=== PATIENT | female | born 1955 | race Caucasian/White ===

== ENCOUNTER 2017-06-18 08:11 | Outpatient (CLI) | payer BC ==
[2017-06-18 08:35] LABS: BASOPHILS % (AUTO) 0.4 % (0-1); EOSINOPHILS # (AUTO) 0.2 X10'3 (0-0.9); EOSINOPHILS % (AUTO) 4.1 % (0-6); HEMATOCRIT 43.6 % (35.0-45.0); LYMPHOCYTES # (AUTO) 1.1 X10'3 (1.1-4.8); LYMPHOCYTES % (AUTO) 22.7 % (21-51); MEAN CORPUSCULAR HEMOGLOBIN 29.6 PG (27.0-31.0); MEAN CORPUSCULAR HGB CONC 34.5 % (33.0-36.5); MEAN CORPUSCULAR VOLUME 85.9 FL (78-98); MEAN PLATELET VOLUME 7.4 FL (7.4-10.4); MONOCYTES # (AUTO) 0.4 X10'3 (0-0.9); MONOCYTES % (AUTO) 7.6 % (2-12); NEUTROPHILS # (AUTO) 3.1 X10'3 (1.8-7.7); NEUTROPHILS % (AUTO) 65.2 % (42-75); PLATELET COUNT 279 X10'3 (140-440); RED BLOOD COUNT 5.07 X10'6 (4.20-5.60); RED CELL DISTRIBUTION WIDTH 13.1 % (11.5-14.5); WHITE BLOOD COUNT 4.8 X10'3 (4.5-11.0)
[2017-06-18 08:46] LABS: PARTIAL THROMBOPLASTIN TIME 27 SECONDS (22-32); PROTHROMBIN TIME 9.9 SECONDS (9.0-12.0)
[2017-06-18 08:47] LABS: ALBUMIN 4.3 G/DL (3.4-5.0); ANION GAP 9 (8-16); BLOOD UREA NITROGEN 16 MG/DL (7-18); BUN/CREATININE RATIO 18.2 (6.6-38.0); CALCIUM 9.7 MG/DL (8.5-10.1); CHLORIDE 104 MMOL/L (99-107); CREATININE 0.88 MG/DL (0.40-0.90); GLUCOSE 91 MG/DL (70-104); POTASSIUM 3.8 MMOL/L (3.5-5.1); SODIUM 141 MMOL/L (135-145); TOTAL CARBON DIOXIDE 27.9 MMOL/L (24-32); eGFR 66 ML/MIN
== END 2017-06-18 23:59 | disposition home or self-care (01) ==
LOC: LAB 08:11
PROVIDERS: ATTEND Internal Medicine Interventional Cardiology
DX: I25.10 Atherosclerotic heart disease of native coronary artery without angina pectoris (principal); E78.4 Other hyperlipidemia; I34.1 Nonrheumatic mitral (valve) prolapse; J45.909 Unspecified asthma, uncomplicated; R07.2 Precordial pain; R06.02 Shortness of breath
CPT/HCPCS: 36415; 80048; 85025; 85610; 85730

== ENCOUNTER 2017-07-13 13:37 | Inpatient (IN) | payer BC ==
[2017-07-09 11:07] LABS: BASOPHILS % (AUTO) 0.6 % (0-1); EOSINOPHILS # (AUTO) 0.2 X10'3 (0-0.9); EOSINOPHILS % (AUTO) 2.9 % (0-6); HEMATOCRIT 44.7 % (35.0-45.0); HEMOGLOBIN 15.2 g/dl (12.0-16.0); MEAN CORPUSCULAR HEMOGLOBIN 29.6 PG (27.0-31.0); MEAN CORPUSCULAR HGB CONC 34.1 % (33.0-36.5); MEAN CORPUSCULAR VOLUME 86.9 FL (78-98); MEAN PLATELET VOLUME 7.6 FL (7.4-10.4); MONOCYTES # (AUTO) 0.4 X10'3 (0-0.9); MONOCYTES % (AUTO) 6.1 % (2-12); NEUTROPHILS # (AUTO) 5.3 X10'3 (1.8-7.7); NEUTROPHILS % (AUTO) 76.4 % (42-75); PLATELET COUNT 274 X10'3 (140-440); RED BLOOD COUNT 5.14 X10'6 (4.20-5.60); RED CELL DISTRIBUTION WIDTH 13.1 % (11.5-14.5); WHITE BLOOD COUNT 6.9 X10'3 (4.5-11.0)
[2017-07-09 11:16] LABS: ALBUMIN 4.4 G/DL (3.4-5.0); ANION GAP 10 (8-16); BLOOD UREA NITROGEN 18 MG/DL (7-18); BUN/CREATININE RATIO 19.6 (6.6-38.0); CALCIUM 9.8 MG/DL (8.5-10.1); CHLORIDE 103 MMOL/L (99-107); CREATININE 0.92 MG/DL (0.40-0.90); GLUCOSE 99 MG/DL (70-104); POTASSIUM 4.4 MMOL/L (3.5-5.1); SODIUM 142 MMOL/L (135-145); TOTAL CARBON DIOXIDE 28.7 MMOL/L (24-32); eGFR 62 ML/MIN
[2017-07-09 11:17] LABS: INR 0.9 INR; PARTIAL THROMBOPLASTIN TIME 26 SECONDS (22-32); PROTHROMBIN TIME 9.8 SECONDS (9.0-12.0)
[~2017-07-13] VITALS: Ht 154.9 cm; Wt 63.0 kg
[2017-07-13 14:04] VITALS: BP 141/88
[2017-07-13] MEDS ORDERED: diphenhydrAMINE 25mg capsule PO ONE (14:05)
[2017-07-13] MEDS ORDERED: normal saline 1000ml 1,000 ML IV SCH ×2 (14:05→21:05)
[2017-07-13] MEDS ORDERED: LORazepam 0.5 MG tablet PO ONE (14:05)
[2017-07-13] MEDS ORDERED: ROSU20TA PO (16:09)
[2017-07-13] MEDS ORDERED: NITR0.4T48 SL (16:09)
[2017-07-13] MEDS ORDERED: LIDOcaine 1%/PF (10mg/ml) 5ml vial ONE (18:59)
[2017-07-13] MEDS ORDERED: iohexol 350MG/ML 100ml bottle IV ONE ×2 (18:59→19:39)
[2017-07-13] MEDS ORDERED: LIDOcaine 1% 30ml preserv. free vial ONE (19:01)
[2017-07-13] MEDS ORDERED: midazolam 2 mg/2 ml injection ONE (19:11)
[2017-07-13] MEDS ORDERED: fentaNYL/PF 50MCG/1 ML 2ML syringe ONE ×2 (19:24→20:09)
[2017-07-13] MEDS ORDERED: heparin 1,000unit/ml 10ml vial 10 ML ONE (19:36)
[2017-07-13 20:40] VITALS: BP 127/82
[2017-07-13 21:00] VITALS: BP 134/79
[2017-07-13] MEDS ORDERED: proCHLORperazine 10 MG/2 ml inj IV PRN (21:05)
[2017-07-13] MEDS ORDERED: ondansetron/PF 4mg/2ml inj IV PRN (21:05)
[2017-07-13] MEDS ORDERED: HYDROcodone/acetaminophen 5mg/325mg tablet PO PRN (21:05)
[2017-07-13] MEDS ORDERED: nitroGLYCERIN 0.4mg SUBLingual tab SL PRN (21:05)
[2017-07-13] MEDS ORDERED: OXAZEpam 15mg capsule PO PRN (21:05)
[2017-07-13] MEDS ORDERED: HYDROmorphone inj. 0.5 MG/0.5 ML DISP.SYRIN IV PRN (21:10)
[2017-07-13 21:15] VITALS: BP 130/68
[2017-07-13 21:30] VITALS: BP 124/72
[2017-07-13] MEDS: HYDROcodone/acetaminophen 10/325mg tab PO PRN (21:47)
[2017-07-13 22:00] VITALS: BP 118/69
[2017-07-14 02:00] VITALS: BP 103/66
[2017-07-14] MEDS: HYDROcodone/acetaminophen 10/325mg tab PO PRN ×2 (02:15→06:04)
[2017-07-14 06:23] LABS: CHOL/HDL RATIO 1.9 (0.00-4.99); CHOLESTEROL 157 MG/DL (0-200); CREATININE 0.88 MG/DL (0.40-0.90); HDL CHOLESTEROL 83 MG/DL (35-60); LDL CHOLESTEROL 51 MG/DL (50-100); TRIGLYCERIDES 68 MG/DL (20-135); eGFR 66 ML/MIN
[2017-07-14 06:30] VITALS: BP 116/59
[2017-07-14] MEDS ORDERED: ASPI-1071 PO (07:04)
[2017-07-14] MEDS ORDERED: METO25TA6 PO (07:04)
[2017-07-14] MEDS ORDERED: metoprolol tartrate 25mg tablet PO SCH (08:00)
[2017-07-14] MEDS ORDERED: atorvastatin 20mg tablet PO SCH (08:00)
[2017-07-14] MEDS ORDERED: aspirin 81mg tablet.DR PO SCH (08:30)
== END 2017-07-14 10:25 | disposition home or self-care (01) | DRG 247 ==
LOC: SSTAY O 13:37 → PCU 3S 21:00
PROVIDERS: ADMIT Internal Medicine Interventional Cardiology; ATTEND Internal Medicine Interventional Cardiology
PROC: 4A023N7 Measurement of Cardiac Sampling and Pressure, Left Heart, Percutaneous Approach (ICD-10-PCS; principal; 2017-07-13)
PROC: 027034Z Dilation of Coronary Artery, One Artery with Drug-eluting Intraluminal Device, Percutaneous Approach (ICD-10-PCS; 2017-07-13)
PROC: B2111ZZ Fluoroscopy of Multiple Coronary Arteries using Low Osmolar Contrast (ICD-10-PCS; 2017-07-13)
PROC: B2151ZZ Fluoroscopy of Left Heart using Low Osmolar Contrast (ICD-10-PCS; 2017-07-13)
DX: I25.119 Atherosclerotic heart disease of native coronary artery with unspecified angina pectoris (principal); E78.00 Pure hypercholesterolemia, unspecified; E78.5 Hyperlipidemia, unspecified; R94.39 Abnormal result of other cardiovascular function study; J45.909 Unspecified asthma, uncomplicated; Z79.899 Other long term (current) drug therapy; Z95.5 Presence of coronary angioplasty implant and graft; Z88.5 Allergy status to narcotic agent
CPT/HCPCS: 36415; 80048; 80061; 82565; 85025; 85610; 85730; 92920; 93005; 93458; 99152; 99153; A6257; C1725; C1760; C1769; C1874; J1644; J2001; J2250; J3010; J3490; J7030; Q0163; Q9967

== ENCOUNTER 2017-08-04 05:20 | Inpatient (IN) | payer BC ==
[2017-08-02 13:36] LABS: ABG BASE EXCESS 1.6 mmol/L (-2.0-3.0); ABG OXYGEN SATURATION 97.4 % (95-98); ABG PCO2 (T) 35.4 mmHg (32.0-45.0); ABG PH (T) 7.466 (7.350-7.450); ABG PO2 (T) 89.4 mmHg (83-108); ALLEN'S TEST Positive; FCOHb 0.5 % (0.5-1.5); FMetHb 0.2 % (0.3-1.12); FO2Hb 96.7 % (94-100); TOTAL HEMOGLOBIN 14.3 G/dl (12.0-16.0)
[2017-08-02 15:54] LABS: BASOPHILS % (AUTO) 0.6 % (0-1); EOSINOPHILS # (AUTO) 0.2 X10'3 (0-0.9); EOSINOPHILS % (AUTO) 3.1 % (0-6); LYMPHOCYTES # (AUTO) 1.3 X10'3 (1.1-4.8); MEAN CORPUSCULAR HEMOGLOBIN 28.9 PG (27.0-31.0); MEAN CORPUSCULAR HGB CONC 33.3 % (33.0-36.5); MEAN CORPUSCULAR VOLUME 86.8 FL (78-98); MEAN PLATELET VOLUME 8.1 FL (7.4-10.4); MONOCYTES # (AUTO) 0.5 X10'3 (0-0.9); MONOCYTES % (AUTO) 6.8 % (2-12); NEUTROPHILS # (AUTO) 4.9 X10'3 (1.8-7.7); NEUTROPHILS % (AUTO) 70.5 % (42-75); PRE OP HEMATOCRIT 41.7 % (35.0-45.0); PRE OP HEMOGLOBIN 13.9 g/dL (12.0-16.0); PRE OP PLATELET COUNT 282 X10'3 (140-440); RED BLOOD COUNT 4.81 X10'6 (4.20-5.60); RED CELL DISTRIBUTION WIDTH 13.5 % (11.5-14.5)
[2017-08-02 15:59] LABS: CLARITY,URINE CLEAR (Clear); COLOR,URINE STRAW (Yellow); GLUCOSE, URINE NEGATIVE (Neg); KETONES,URINE TRACE mg/dl (Neg); LEUKOCYTE ESTERASE ,URINE TRACE (Neg); NITRITES, URINE NEGATIVE (Neg); OCCULT BLOOD,URINE NEGATIVE (Neg); PROTEIN,URINE NEGATIVE (Neg); UROBILINOGEN,URINE 0.2 E.U/dL (0.2-1.0)
[2017-08-02 16:00] LABS: UA COLLECTION TYPE CLN CATCH MIDSTREAM
[2017-08-02 16:04] LABS: RBC,URINE NONE SEEN /HPF (0-2)
[2017-08-02 16:05] LABS: HEMOGLOBIN A1C 5.4 % (4.5-6.2)
[2017-08-02 16:06] LABS: BACTERIA,URINE FEW /HPF (Neg); SQUAMOUS EPITHELIAL CELL,UR FEW /LPF (FEW)
[2017-08-02 16:11] LABS: ALBUMIN 4.3 G/DL (3.4-5.0); ALBUMIN/GLOBULIN RATIO 1.3 (1.1-1.5); ALKALINE PHOSPHATASE 87 IU/L (46-116); BLOOD UREA NITROGEN 17 MG/DL (7-18); CALCIUM 9.6 MG/DL (8.5-10.1); CHLORIDE 104 MMOL/L (99-107); CREATININE 0.81 MG/DL (0.40-0.90); PRE OP ALT 39 U/L (30-65); PRE OP ANION GAP 8 (8-16); PRE OP AST 31 U/L (10-37); PRE OP BILIRUB, TOTAL 0.8 MG/DL (0.0-1.0); PRE OP GLUCOSE 90 MG/DL (70-104); PRE OP POTASSIUM 3.8 MMOL/L (3.4-5.1); PRE OP SODIUM 141 MMOL/L (135-145); TOTAL PROTEIN 7.5 G/DL (6.4-8.2); eGFR 72 ML/MIN
[2017-08-04] VITALS (18 sets, daily range): BP systolic 100–131; BP diastolic 41–79
[~2017-08-04] VITALS: Ht 154.9 cm; Wt 62.0 kg
[~2017-08-04 05:20] MED LIST: ASPI-1071 PO; LORA10TA7 PO; METO25TA6 PO; MULT-38 PO; NITR0.4T48 SL; ROSU20TA PO; dextrose 50%-water 50ml dispensing syringe IV PRN; ringers solution, lacted 1,000 ML IV SCH
[2017-08-04] MEDS: insulin regular, human 100 UNITS in normal saline 100ml IV soln 99 ML IV SCH ×14 (05:30→21:03)
[2017-08-04] MEDS ORDERED: Cefazolin 2GM/100ML NS IVPB IV ONE (05:30)
[2017-08-04] MEDS ORDERED: LORazepam 2 mg/ml vial IV PRN (05:30)
[2017-08-04] MEDS ORDERED: famotidine 20mg tablet PO ONE (05:30)
[2017-08-04] MEDS ORDERED: albuterol 2.5 MG/3 ML nebule NEB ONE (05:30)
[2017-08-04] MEDS ORDERED: VANCOMYCIN INJ 1000 MG in NORMAL SALINE 250ml IV.SOLN IV ONE (05:30)
[2017-08-04] MEDS ORDERED: LIDOcaine 1% (10mg/ml) 2ml vial ONE (05:47)
[2017-08-04] MEDS: mupirocin 2% nasal ointment 1gm UD NS SCH ×2 (06:12→19:41)
[2017-08-04] MEDS ORDERED: LORazepam 2 mg/ml vial ONE (06:51)
[2017-08-04] MEDS ORDERED: nitroGLYCERIN in D5W 50mg/250ml (Tridil) infusion IV ONE (07:05)
[2017-08-04] MEDS ORDERED: SUFENTANIL CITRATE 50 MCG/ML 2ml ampule IV ONE (07:05)
[2017-08-04] MEDS ORDERED: isoflurane 100ml inhalation liquid IH ONE (07:05)
[2017-08-04] MEDS ORDERED: protamine sulf. 10mg/ml inj. IV ONE (07:05)
[2017-08-04] MEDS ORDERED: DOPamine/D5W 400mg/250ml bag IV ONE (07:05)
[2017-08-04] MEDS ORDERED: propofol inj 20 ML IV ONE (07:06)
[2017-08-04] MEDS ORDERED: LIDOcaine 1%/PF (10mg/ml) 5ml vial ONE (07:07)
[2017-08-04] MEDS ORDERED: rocuronium 10mg/ml inj IV ONE (07:08)
[2017-08-04 07:50] LABS: ABG BASE EXCESS -0.8 mmol/L (-2.0-3.0); ABG HCO3 21.8 mmol/L (22.0-26.0); ABG OXYGEN SATURATION 99.3 % (95-98); ABG PCO2 30.2 mmHg (35.0-45.0); ABG PH 7.477 (7.350-7.450); ABG PO2 260.1 mmHg (60.0-100.0); CL (ABG) 108 mmol/L (99-107); FCOHb 0.1 % (0.5-1.5); FMetHb 0.4 % (0.3-1.12); FO2Hb 98.8 % (94-100); GLUCOSE (ABG) 103 mg/dl (70-105); IONIZED CA (ABG) 1.17 mmol/L (1.03-1.32); K (ABG) 3.8 mmol/L (3.3-5.1); NA (ABG) 139 mmol/L (135-145); TOTAL HEMOGLOBIN 12.6 G/dl (12.0-16.0)
[2017-08-04 07:55] LABS: ACT @ 1.70 U 301 SEC (193-297); ACT @ 2.84 U 444 SEC (260-420); BASELINE ACT 155 SEC (101-148); PATIENT WEIGHT 64.0k KG
[2017-08-04] MEDS ORDERED: papaverine 30 mg/ml 2ml inj. ONE (08:00)
[2017-08-04] MEDS ORDERED: heparin 10,000 units/1 ML INJ ONE (08:00)
[2017-08-04] MEDS ORDERED: heparin 10,000 units/1 ML INJ IR ONE (08:18)
[2017-08-04] MEDS ORDERED: papaverine 30 mg/ml 2ml inj. IA ONE (08:19)
[2017-08-04 08:50] LABS: ABG BASE EXCESS -1.6 mmol/L (-2.0-3.0); ABG HCO3 21.5 mmol/L (22.0-26.0); ABG OXYGEN SATURATION 99.4 % (95-98); ABG PCO2 31.2 mmHg (35.0-45.0); ABG PH 7.457 (7.350-7.450); ABG PO2 289.7 mmHg (60.0-100.0); CL (ABG) 108 mmol/L (99-107); FCOHb 0.3 % (0.5-1.5); FMetHb 0.2 % (0.3-1.12); FO2Hb 98.9 % (94-100); GLUCOSE (ABG) 104 mg/dl (70-105); IONIZED CA (ABG) 1.12 mmol/L (1.03-1.32); K (ABG) 3.7 mmol/L (3.3-5.1); NA (ABG) 135 mmol/L (135-145); TOTAL HEMOGLOBIN 11.1 G/dl (12.0-16.0)
[2017-08-04] MEDS: insulin Lispro (HumaLOG) vial - multi-dose SQ SCH ×5 (08:50→15:41)
[2017-08-04 09:10] LABS: ABG BASE EXCESS 0.7 mmol/L (-2.0-3.0); ABG HCO3 23.5 mmol/L (22.0-26.0); ABG OXYGEN SATURATION 99.3 % (95-98); ABG PCO2 30.2 mmHg (35.0-45.0); ABG PH 7.509 (7.350-7.450); ABG PO2 456.5 mmHg (60.0-100.0); CL (ABG) 101 mmol/L (99-107); FCOHb 0.3 % (0.5-1.5); FMetHb 0.1 % (0.3-1.12); FO2Hb 98.9 % (94-100); GLUCOSE (ABG) 104 mg/dl (70-105); IONIZED CA (ABG) 0.85 mmol/L (1.03-1.32); K (ABG) 4.1 mmol/L (3.3-5.1); NA (ABG) 132 mmol/L (135-145); TOTAL HEMOGLOBIN 7.7 G/dl (12.0-16.0)
[2017-08-04 09:21] LABS: ABG BASE EXCESS 1.4 mmol/L (-2.0-3.0); ABG HCO3 24.9 mmol/L (22.0-26.0); ABG OXYGEN SATURATION 99.7 % (95-98); ABG PCO2 34.5 mmHg (35.0-45.0); ABG PH 7.477 (7.350-7.450); ABG PO2 450.7 mmHg (60.0-100.0); CL (ABG) 106 mmol/L (99-107); FCOHb 0.6 % (0.5-1.5); FMetHb 0.3 % (0.3-1.12); FO2Hb 98.8 % (94-100); GLUCOSE (ABG) 117 mg/dl (70-105); IONIZED CA (ABG) 0.95 mmol/L (1.03-1.32); NA (ABG) 132 mmol/L (135-145); TOTAL HEMOGLOBIN 7.7 G/dl (12.0-16.0)
[2017-08-04 09:35] LABS: ABG BASE EXCESS VENOUS 0.2 mmol/L; ABG HCO3 VENOUS 24.7 mmol/L; ABG PCO2 VENOUS 39.5 mmHg; ABG PO2 VENOUS 45.7 mmHg; CL (ABG) 106 mmol/L (99-107); FCOHb VENOUS 0.3 %; FHHb VENOUS 17.3 %; FMetHb VENOUS 0.7 %; FO2Hb VENOUS 81.7 %; GLUCOSE (ABG) 128 mg/dl (70-105); IONIZED CA (ABG) 1.03 mmol/L (1.03-1.32); K (ABG) 5.3 mmol/L (3.3-5.1); NA (ABG) 134 mmol/L (135-145); TOTAL HEMOGLOBIN 8.6 G/dl (12.0-16.0)
[2017-08-04 10:15] LABS: ABG BASE EXCESS 2.7 mmol/L (-2.0-3.0); ABG HCO3 24.9 mmol/L (22.0-26.0); ABG OXYGEN SATURATION 99.2 % (95-98); ABG PCO2 28.5 mmHg (35.0-45.0); ABG PH 7.559 (7.350-7.450); CL (ABG) 109 mmol/L (99-107); FCOHb 0.3 % (0.5-1.5); FMetHb 0.9 % (0.3-1.12); GLUCOSE (ABG) 123 mg/dl (70-105); IONIZED CA (ABG) 1.33 mmol/L (1.03-1.32); K (ABG) 4.5 mmol/L (3.3-5.1); NA (ABG) 136 mmol/L (135-145); TOTAL HEMOGLOBIN 7.3 G/dl (12.0-16.0)
[2017-08-04 10:46] LABS: ABG BASE EXCESS 0.9 mmol/L (-2.0-3.0); ABG HCO3 24.1 mmol/L (22.0-26.0); ABG OXYGEN SATURATION 99.1 % (95-98); ABG PCO2 32.7 mmHg (35.0-45.0); ABG PH 7.485 (7.350-7.450); ABG PO2 356.7 mmHg (60.0-100.0); CL (ABG) 109 mmol/L (99-107); FCOHb 0.3 % (0.5-1.5); FMetHb 0.7 % (0.3-1.12); FO2Hb 98.1 % (94-100); GLUCOSE (ABG) 114 mg/dl (70-105); IONIZED CA (ABG) 1.21 mmol/L (1.03-1.32); K (ABG) 4.2 mmol/L (3.3-5.1); NA (ABG) 136 mmol/L (135-145); TOTAL HEMOGLOBIN 8.8 G/dl (12.0-16.0)
[2017-08-04] MEDS ORDERED: ipratropium/albuterol 3ml nebule IH SCH (11:00)
[2017-08-04] MEDS ORDERED: niCARDipine/sod cl 20mg/200ml 200 ML IV PRN (11:09)
[2017-08-04] MEDS ORDERED: nitroGLYCERIN-Tridil 50MG/D5W 250 ML IV PRN (11:09)
[2017-08-04] MEDS ORDERED: sodium chloride 0.45% 1,000 ML IV SCH (11:09)
[2017-08-04] MEDS ORDERED: DOPamine 400mg/D5W 250ml 250 ML IV PRN (11:09)
[2017-08-04] MEDS ORDERED: metoclopramide 5 mg/ml inj IV PRN (11:10)
[2017-08-04] MEDS ORDERED: HYDROcodone/acetaminophen 10/325mg tab PO PRN (11:10)
[2017-08-04] MEDS ORDERED: magnesium 2GM in 50ml NS 50 ML IV PRN (11:10)
[2017-08-04] MEDS ORDERED: magnesium 4gm in 100ml NS 100 ML IV PRN (11:10)
[2017-08-04] MEDS ORDERED: ondansetron/PF 4mg/2ml inj IV PRN (11:10)
[2017-08-04] MEDS ORDERED: potassium Cl 20mEq/100mL bag 100 ML IV PRN ×3 (11:10)
[2017-08-04] MEDS ORDERED: Neutra Phos packet PO PRN (11:10)
[2017-08-04] MEDS ORDERED: insulin regular, human inj. 100 UNITS in normal saline 100ml IV soln 100 ML IV SCH ×2 (11:10)
[2017-08-04] MEDS ORDERED: acetaminophen 325mg tablet PO PRN (11:10)
[2017-08-04] MEDS ORDERED: sodium phosphate inj. 30 MMOL in dextrose 5%-water 250 ML IV PRN (11:10)
[2017-08-04] MEDS ORDERED: sodium phosphate inj. 15 MMOL in dextrose 5%-water 150 ML IV PRN (11:10)
[2017-08-04] MEDS ORDERED: magnesium hydroxide 30ml (MOM) UD suspension PO PRN (11:10)
[2017-08-04] MEDS ORDERED: normal saline 250ml IV soln 250 ML IV PRN (11:10)
[2017-08-04] MEDS ORDERED: dextrose 50%-water 50ml dispensing syringe IV PRN (11:10)
[2017-08-04 11:35] LABS: BASOPHILS % (AUTO) 0.2 % (0-1); EOSINOPHILS # (AUTO) 0.1 X10'3 (0-0.9); EOSINOPHILS % (AUTO) 0.6 % (0-6); HEMATOCRIT 32.1 % (35.0-45.0); HEMOGLOBIN 10.9 g/dl (12.0-16.0); LYMPHOCYTES # (AUTO) 0.5 X10'3 (1.1-4.8); MEAN CORPUSCULAR HEMOGLOBIN 29.3 PG (27.0-31.0); MEAN CORPUSCULAR HGB CONC 33.9 % (33.0-36.5); MEAN CORPUSCULAR VOLUME 86.3 FL (78-98); MEAN PLATELET VOLUME 7.6 FL (7.4-10.4); MONOCYTES # (AUTO) 0.3 X10'3 (0-0.9); NEUTROPHILS # (AUTO) 8.9 X10'3 (1.8-7.7); NEUTROPHILS % (AUTO) 91.2 % (42-75); PLATELET COUNT 189 X10'3 (140-440); RED BLOOD COUNT 3.72 X10'6 (4.20-5.60); RED CELL DISTRIBUTION WIDTH 13.1 % (11.5-14.5); WHITE BLOOD COUNT 9.8 X10'3 (4.5-11.0)
[2017-08-04 11:46] LABS: INR 1.1 INR; PARTIAL THROMBOPLASTIN TIME 29 SECONDS (22-32); PROTHROMBIN TIME 11.6 SECONDS (9.0-12.0)
[2017-08-04 11:46] LABS: ABG BASE EXCESS 0.9 mmol/L (-2.0-3.0); ABG HCO3 24.4 mmol/L (22.0-26.0); ABG OXYGEN SATURATION 98.9 % (95-98); ABG PCO2 (T) 34.3 mmHg (32.0-45.0); ABG PH (T) 7.468 (7.350-7.450); ABG PO2 (T) 232.9 mmHg (83-108); FCOHb 0.3 % (0.5-1.5); FLOW 80 L/min; FMetHb 0.4 % (0.3-1.12); FO2Hb 98.2 % (94-100); MINUTE VOLUME 7 L/min; PATIENT TEMPERATURE 36.4; PEEP 5 cm H2O; RESPIRATORY RATE 12 b/min; TIDAL VOLUME 475 mL; TOTAL HEMOGLOBIN 11.8 G/dl (12.0-16.0)
[2017-08-04 11:50] LABS: ALANINE AMINOTRANSFERASE 28 U/L (12-78); ALBUMIN 3.1 G/DL (3.4-5.0); ALBUMIN/GLOBULIN RATIO 1.7 (1.1-1.5); ALKALINE PHOSPHATASE 47 IU/L (46-116); ANION GAP 7 (8-16); ASPARTATE AMINO TRANSFERASE 40 U/L (10-37); BLOOD UREA NITROGEN 12 MG/DL (7-18); CALCIUM 8.7 MG/DL (8.5-10.1); CHLORIDE 113 MMOL/L (99-107); GLUCOSE 133 MG/DL (70-104); MAGNESIUM 3.7 MG/DL (1.5-2.4); PHOSPHORUS 2.4 MG/DL (2.3-4.5); SODIUM 145 MMOL/L (135-145); TOTAL CARBON DIOXIDE 25.5 MMOL/L (24-32); TOTAL PROTEIN 4.9 G/DL (6.4-8.2); eGFR 73 ML/MIN
[2017-08-04] MEDS: morphine 4 MG/ML inj SYRINge IV PRN ×6 (12:18→22:46)
[2017-08-04] MEDS: albumin (Human) 5% 250ml 250 ML IV PRN ×2 (12:30→14:11)
[2017-08-04 14:35] LABS: ACTIVATED CLOTTING TIME 139 SEC (101-148)
[2017-08-04] MEDS: ceFAZolin 1GM/D5W- ADD-VANTAGE 50 ML IV SCH (15:19)
[2017-08-04 17:15] LABS: BASOPHILS % (AUTO) 0 % (0-1); EOSINOPHILS # (AUTO) 0.1 X10'3 (0-0.9); EOSINOPHILS % (AUTO) 1.2 % (0-6); HEMATOCRIT 28.9 % (35.0-45.0); HEMOGLOBIN 9.7 g/dl (12.0-16.0); LYMPHOCYTES # (AUTO) 0.3 X10'3 (1.1-4.8); LYMPHOCYTES % (AUTO) 2.7 % (21-51); MEAN CORPUSCULAR HEMOGLOBIN 29.2 PG (27.0-31.0); MEAN CORPUSCULAR HGB CONC 33.7 % (33.0-36.5); MEAN CORPUSCULAR VOLUME 86.7 FL (78-98); MEAN PLATELET VOLUME 7.8 FL (7.4-10.4); MONOCYTES # (AUTO) 0.3 X10'3 (0-0.9); MONOCYTES % (AUTO) 2.1 % (2-12); NEUTROPHILS # (AUTO) 11.3 X10'3 (1.8-7.7); PLATELET COUNT 168 X10'3 (140-440); RED BLOOD COUNT 3.33 X10'6 (4.20-5.60); RED CELL DISTRIBUTION WIDTH 13.3 % (11.5-14.5)
[2017-08-04 17:56] LABS: ALBUMIN 3.9 G/DL (3.4-5.0); ANION GAP 11 (8-16); BLOOD UREA NITROGEN 12 MG/DL (7-18); BUN/CREATININE RATIO 12.1 (6.6-38.0); CALCIUM 8.9 MG/DL (8.5-10.1); CHLORIDE 113 MMOL/L (99-107); CREATININE 0.99 MG/DL (0.40-0.90); GLUCOSE 144 MG/DL (70-104); MAGNESIUM 2.7 MG/DL (1.5-2.4); PHOSPHORUS 3.4 MG/DL (2.3-4.5); POTASSIUM 4.2 MMOL/L (3.5-5.1); SODIUM 149 MMOL/L (135-145); eGFR 57 ML/MIN
[2017-08-04] MEDS: vancomycin/NS 1 GM ADD-VANTAGE 250 ML IV SCH (19:41)
[2017-08-04] MEDS: docusate sod 100mg capsule PO SCH (19:42)
[2017-08-04] MEDS ORDERED: mupirocin 2% ointment 22GM NS SCH (20:00)
[2017-08-04 20:50] LABS: ABG BASE EXCESS -3.4 mmol/L (-2.0-3.0); ABG HCO3 20.6 mmol/L (22.0-26.0); ABG OXYGEN SATURATION 97.6 % (95-98); ABG PCO2 (T) 33.1 mmHg (32.0-45.0); ABG PH (T) 7.412 (7.350-7.450); ABG PO2 (T) 111.2 mmHg (83-108); FCOHb 0.2 % (0.5-1.5); FMetHb 0.2 % (0.3-1.12); FO2Hb 97.2 % (94-100); MINUTE VOLUME 5 L/min; PATIENT TEMPERATURE 36.8; PEEP 5 cm H2O; RESPIRATORY RATE (OBSERVED) 11 b/min; TOTAL HEMOGLOBIN 10.3 G/dl (12.0-16.0)
[2017-08-05] VITALS (23 sets, daily range): BP systolic 87–133; BP diastolic 50–72
[2017-08-05] MEDS: insulin regular, human 100 UNITS in normal saline 100ml IV soln 99 ML IV SCH ×6 (00:03→05:03)
[2017-08-05] MEDS: ceFAZolin 1GM/D5W- ADD-VANTAGE 50 ML IV SCH ×4 (00:05→23:53)
[2017-08-05] MEDS: morphine 4 MG/ML inj SYRINge IV PRN ×2 (00:49→04:36)
[2017-08-05 02:22] LABS: BASOPHILS # (AUTO) 0.1 X10'3 (0-0.2); BASOPHILS % (AUTO) 0.5 % (0-1); EOSINOPHILS % (AUTO) 0.4 % (0-6); HEMATOCRIT 27.8 % (35.0-45.0); HEMOGLOBIN 9.3 g/dl (12.0-16.0); LYMPHOCYTES # (AUTO) 0.3 X10'3 (1.1-4.8); LYMPHOCYTES % (AUTO) 2.8 % (21-51); MEAN CORPUSCULAR HEMOGLOBIN 29.3 PG (27.0-31.0); MEAN CORPUSCULAR HGB CONC 33.3 % (33.0-36.5); MEAN PLATELET VOLUME 8.2 FL (7.4-10.4); MONOCYTES # (AUTO) 0.4 X10'3 (0-0.9); MONOCYTES % (AUTO) 3.5 % (2-12); NEUTROPHILS # (AUTO) 10.1 X10'3 (1.8-7.7); NEUTROPHILS % (AUTO) 92.8 % (42-75); PLATELET COUNT 154 X10'3 (140-440); RED BLOOD COUNT 3.16 X10'6 (4.20-5.60); RED CELL DISTRIBUTION WIDTH 13.5 % (11.5-14.5); WHITE BLOOD COUNT 10.9 X10'3 (4.5-11.0)
[2017-08-05 02:33] LABS: PARTIAL THROMBOPLASTIN TIME 29 SECONDS (22-32); PROTHROMBIN TIME 10.4 SECONDS (9.0-12.0)
[2017-08-05 02:40] LABS: ALANINE AMINOTRANSFERASE 28 U/L (12-78); ALBUMIN 3.7 G/DL (3.4-5.0); ALBUMIN/GLOBULIN RATIO 1.9 (1.1-1.5); ALKALINE PHOSPHATASE 39 IU/L (46-116); ANION GAP 7 (8-16); ASPARTATE AMINO TRANSFERASE 37 U/L (10-37); BILIRUBIN,TOTAL 0.7 MG/DL (0.1-1.0); BLOOD UREA NITROGEN 13 MG/DL (7-18); BUN/CREATININE RATIO 15.3 (6.6-38.0); CALCIUM 8.8 MG/DL (8.5-10.1); CHLORIDE 114 MMOL/L (99-107); CREATININE 0.85 MG/DL (0.40-0.90); GLUCOSE 124 MG/DL (70-104); MAGNESIUM 2.2 MG/DL (1.5-2.4); PHOSPHORUS 4.5 MG/DL (2.3-4.5); POTASSIUM 4.5 MMOL/L (3.5-5.1); SODIUM 148 MMOL/L (135-145); TOTAL CARBON DIOXIDE 26.6 MMOL/L (24-32); TOTAL PROTEIN 5.7 G/DL (6.4-8.2); eGFR 68 ML/MIN
[2017-08-05 06:13] LABS: K (ABG) 6.1 mmol/L (3.3-5.1)
[2017-08-05] MEDS: aspirin 325mg tablet, delayed-release (Ecotrin) PO SCH (07:35)
[2017-08-05] MEDS: multivitamins, therapeutics tablet PO SCH (07:35)
[2017-08-05] MEDS: pantoprazole 40mg Tablet.DR PO SCH (07:35)
[2017-08-05] MEDS: atorvastatin 10mg tablet PO SCH (07:35)
[2017-08-05] MEDS: docusate sod 100mg capsule PO SCH ×2 (07:35→19:21)
[2017-08-05] MEDS: loratadine 10mg tablet PO SCH (07:35)
[2017-08-05] MEDS: metoprolol tartrate 12.5mg (1/2 tablet) PO SCH ×2 (07:35→19:21)
[2017-08-05] MEDS: HYDROcodone/acetaminophen 10/325mg tab PO PRN ×3 (07:36→19:20)
[2017-08-05] MEDS ORDERED: potassium Cl 2 mEq/ml inj IV ONE (08:00)
[2017-08-05] MEDS ORDERED: LIDOcaine 2% (20 mg/ml) 5ml cardiac syringe ONE (08:00)
[2017-08-05] MEDS ORDERED: sodium bicarbonate (8.4%) 1 mEq/ml syringe ONE (08:00)
[2017-08-05] MEDS ORDERED: aminocaproic acid 250 MG/1 ML inj. ONE (08:00)
[2017-08-05] MEDS ORDERED: phenylephrine 10mg/ml inj IV ONE (08:00)
[2017-08-05] MEDS ORDERED: methylPREDNISolone sod. succ. 500mg inj ONE (08:00)
[2017-08-05] MEDS ORDERED: magnesium sulf 1 GM/2 ML ONE (08:00)
[2017-08-05] MEDS ORDERED: albumin (human) 25% 100 ML IV solution IV ONE (08:00)
[2017-08-05] MEDS ORDERED: calcium chloride 100 MG/1 ML inj IV ONE (08:00)
[2017-08-05] MEDS ORDERED: heparin 1,000 units/ml 10ml inj ONE (08:00)
[2017-08-05] MEDS: mupirocin 2% nasal ointment 1gm UD NS SCH ×2 (08:13→20:00)
[2017-08-05] MEDS: vancomycin/NS 1 GM ADD-VANTAGE 250 ML IV SCH ×2 (08:13→19:23)
[2017-08-05] MEDS: insulin Lispro (HumaLOG) vial - multi-dose SQ SCH ×4 (09:00→18:00)
[2017-08-06] VITALS (14 sets, daily range): BP systolic 103–160; BP diastolic 59–83
[2017-08-06] MEDS: HYDROcodone/acetaminophen 10/325mg tab PO PRN ×3 (02:09→17:11)
[2017-08-06 02:40] LABS: BASOPHILS % (AUTO) 0 % (0-1); EOSINOPHILS # (AUTO) 0.1 X10'3 (0-0.9); EOSINOPHILS % (AUTO) 0.5 % (0-6); HEMATOCRIT 27.7 % (35.0-45.0); HEMOGLOBIN 9.3 g/dl (12.0-16.0); LYMPHOCYTES # (AUTO) 0.4 X10'3 (1.1-4.8); LYMPHOCYTES % (AUTO) 2.6 % (21-51); MEAN CORPUSCULAR HEMOGLOBIN 29.5 PG (27.0-31.0); MEAN CORPUSCULAR HGB CONC 33.7 % (33.0-36.5); MEAN CORPUSCULAR VOLUME 87.6 FL (78-98); MEAN PLATELET VOLUME 8.5 FL (7.4-10.4); MONOCYTES # (AUTO) 0.5 X10'3 (0-0.9); NEUTROPHILS # (AUTO) 12.8 X10'3 (1.8-7.7); NEUTROPHILS % (AUTO) 92.9 % (42-75); PLATELET COUNT 161 X10'3 (140-440); RED BLOOD COUNT 3.16 X10'6 (4.20-5.60); RED CELL DISTRIBUTION WIDTH 13.8 % (11.5-14.5); WHITE BLOOD COUNT 13.8 X10'3 (4.5-11.0)
[2017-08-06 02:53] LABS: ALBUMIN 3.4 G/DL (3.4-5.0); ANION GAP 5 (8-16); BLOOD UREA NITROGEN 16 MG/DL (7-18); BUN/CREATININE RATIO 18.4 (6.6-38.0); CALCIUM 8.7 MG/DL (8.5-10.1); CHLORIDE 105 MMOL/L (99-107); CREATININE 0.87 MG/DL (0.40-0.90); GLUCOSE 156 MG/DL (70-104); MAGNESIUM 1.9 MG/DL (1.5-2.4); PHOSPHORUS 3.6 MG/DL (2.3-4.5); POTASSIUM 4.8 MMOL/L (3.5-5.1); SODIUM 138 MMOL/L (135-145); TOTAL CARBON DIOXIDE 27.9 MMOL/L (24-32); eGFR 66 ML/MIN
[2017-08-06] MEDS: morphine 4 MG/ML inj SYRINge IV PRN (04:04)
[2017-08-06] MEDS ORDERED: magnesium 4gm in 100ml NS 100 ML IV PRN (07:30)
[2017-08-06] MEDS ORDERED: magnesium Cl slow-release 64mg tablet PO PRN (07:30)
[2017-08-06] MEDS ORDERED: potassium Cl 40MEQ/NS 500ml 500 ML IV PRN ×2 (07:30)
[2017-08-06] MEDS ORDERED: potassium Cl 20 mEq SR tablet PO PRN ×2 (07:30)
[2017-08-06] MEDS ORDERED: magnesium 2GM in 50ml NS 50 ML IV PRN (07:30)
[2017-08-06] MEDS: K and/or MAG REPLACEMENT MC SCH (08:00)
[2017-08-06] MEDS: atorvastatin 10mg tablet PO SCH (08:26)
[2017-08-06] MEDS: loratadine 10mg tablet PO SCH (08:26)
[2017-08-06] MEDS: potassium Cl 20 mEq SR tablet PO SCH ×2 (08:26→19:49)
[2017-08-06] MEDS: magnesium Cl slow-release 64mg tablet PO SCH ×2 (08:26→19:48)
[2017-08-06] MEDS: docusate sod 100mg capsule PO SCH ×2 (08:27→19:48)
[2017-08-06] MEDS: aspirin 325mg tablet, delayed-release (Ecotrin) PO SCH (08:27)
[2017-08-06] MEDS: pantoprazole 40mg Tablet.DR PO SCH (08:27)
[2017-08-06] MEDS: multivitamins, therapeutics tablet PO SCH (08:27)
[2017-08-06] MEDS: metoprolol tartrate 12.5mg (1/2 tablet) PO SCH ×2 (08:27→19:48)
[2017-08-07 03:00] VITALS: BP 110/62
[2017-08-07 05:55] LABS: BASOPHILS % (AUTO) 0.3 % (0-1); EOSINOPHILS % (AUTO) 0 % (0-6); HEMATOCRIT 29.5 % (35.0-45.0); HEMOGLOBIN 9.8 g/dl (12.0-16.0); LYMPHOCYTES # (AUTO) 0.6 X10'3 (1.1-4.8); LYMPHOCYTES % (AUTO) 5.9 % (21-51); MEAN CORPUSCULAR HEMOGLOBIN 28.9 PG (27.0-31.0); MEAN CORPUSCULAR HGB CONC 33.1 % (33.0-36.5); MEAN CORPUSCULAR VOLUME 87.3 FL (78-98); MEAN PLATELET VOLUME 8.4 FL (7.4-10.4); MONOCYTES # (AUTO) 0.7 X10'3 (0-0.9); MONOCYTES % (AUTO) 7.2 % (2-12); NEUTROPHILS # (AUTO) 8.6 X10'3 (1.8-7.7); NEUTROPHILS % (AUTO) 86.6 % (42-75); PLATELET COUNT 188 X10'3 (140-440); RED BLOOD COUNT 3.38 X10'6 (4.20-5.60); RED CELL DISTRIBUTION WIDTH 13.3 % (11.5-14.5); WHITE BLOOD COUNT 9.9 X10'3 (4.5-11.0)
[2017-08-07 06:00] VITALS: BP 126/73
[2017-08-07 06:16] LABS: ALBUMIN 3.2 G/DL (3.4-5.0); ANION GAP 6 (8-16); BLOOD UREA NITROGEN 13 MG/DL (7-18); BUN/CREATININE RATIO 16.9 (6.6-38.0); CHLORIDE 105 MMOL/L (99-107); CREATININE 0.77 MG/DL (0.40-0.90); GLUCOSE 127 MG/DL (70-104); MAGNESIUM 2.1 MG/DL (1.5-2.4); POTASSIUM 4.5 MMOL/L (3.5-5.1); SODIUM 141 MMOL/L (135-145); TOTAL CARBON DIOXIDE 29.8 MMOL/L (24-32); eGFR 76 ML/MIN
[2017-08-07] MEDS: potassium Cl 20 mEq SR tablet PO SCH ×2 (06:44→20:00)
[2017-08-07] MEDS: magnesium Cl slow-release 64mg tablet PO SCH ×2 (06:45→20:00)
[2017-08-07] MEDS: K and/or MAG REPLACEMENT MC SCH (08:00)
[2017-08-07] MEDS: pantoprazole 40mg Tablet.DR PO SCH (08:30)
[2017-08-07] MEDS: multivitamins, therapeutics tablet PO SCH (08:31)
[2017-08-07] MEDS: metoprolol tartrate 12.5mg (1/2 tablet) PO SCH (08:31)
[2017-08-07] MEDS: loratadine 10mg tablet PO SCH (08:31)
[2017-08-07] MEDS: docusate sod 100mg capsule PO SCH ×2 (08:31→20:00)
[2017-08-07] MEDS: aspirin 325mg tablet, delayed-release (Ecotrin) PO SCH (08:31)
[2017-08-07] MEDS: atorvastatin 10mg tablet PO SCH (08:31)
[2017-08-07] MEDS ORDERED: ibuprofen tablet 400 MG TABLET PO PRN (08:50)
[2017-08-07] MEDS ORDERED: magnesium citrate 296ml oral solution PO ONE (09:35)
[2017-08-07] MEDS: HYDROcodone/acetaminophen 5mg/325mg tablet PO PRN ×3 (10:16→20:22)
[2017-08-07 11:00] VITALS: BP 118/79
[2017-08-07 15:00] VITALS: BP 113/71
[2017-08-07 19:00] VITALS: BP 116/67
[2017-08-07] MEDS: metoprolol tartrate 25mg tablet PO SCH (20:21)
[2017-08-07 23:00] VITALS: BP 92/55
[2017-08-08 03:00] VITALS: BP 90/57
[2017-08-08] MEDS: HYDROcodone/acetaminophen 10/325mg tab PO PRN (05:38)
[2017-08-08 05:49] LABS: BASOPHILS % (AUTO) 0.2 % (0-1); EOSINOPHILS # (AUTO) 0.2 X10'3 (0-0.9); EOSINOPHILS % (AUTO) 3.4 % (0-6); HEMATOCRIT 32.1 % (35.0-45.0); HEMOGLOBIN 10.7 g/dl (12.0-16.0); LYMPHOCYTES # (AUTO) 1.4 X10'3 (1.1-4.8); LYMPHOCYTES % (AUTO) 20.4 % (21-51); MEAN CORPUSCULAR HEMOGLOBIN 29.3 PG (27.0-31.0); MEAN CORPUSCULAR HGB CONC 33.3 % (33.0-36.5); MEAN CORPUSCULAR VOLUME 88.1 FL (78-98); MEAN PLATELET VOLUME 7.7 FL (7.4-10.4); MONOCYTES # (AUTO) 0.6 X10'3 (0-0.9); MONOCYTES % (AUTO) 7.9 % (2-12); NEUTROPHILS # (AUTO) 4.8 X10'3 (1.8-7.7); NEUTROPHILS % (AUTO) 68.1 % (42-75); PLATELET COUNT 229 X10'3 (140-440); RED BLOOD COUNT 3.64 X10'6 (4.20-5.60); RED CELL DISTRIBUTION WIDTH 13.6 % (11.5-14.5); WHITE BLOOD COUNT 7.1 X10'3 (4.5-11.0)
[2017-08-08 06:40] LABS: ALBUMIN 3.1 G/DL (3.4-5.0); ANION GAP 5 (8-16); BLOOD UREA NITROGEN 16 MG/DL (7-18); BUN/CREATININE RATIO 21.6 (6.6-38.0); CALCIUM 8.9 MG/DL (8.5-10.1); CHLORIDE 105 MMOL/L (99-107); CREATININE 0.74 MG/DL (0.40-0.90); GLUCOSE 106 MG/DL (70-104); MAGNESIUM 2.4 MG/DL (1.5-2.4); POTASSIUM 4.7 MMOL/L (3.5-5.1); SODIUM 141 MMOL/L (135-145); eGFR 80 ML/MIN
[2017-08-08 06:48] VITALS: BP 106/66
[2017-08-08] MEDS: atorvastatin 10mg tablet PO SCH (07:34)
[2017-08-08] MEDS: pantoprazole 40mg Tablet.DR PO SCH (07:34)
[2017-08-08] MEDS: loratadine 10mg tablet PO SCH (07:34)
[2017-08-08] MEDS: docusate sod 100mg capsule PO SCH (07:35)
[2017-08-08] MEDS: multivitamins, therapeutics tablet PO SCH (07:35)
[2017-08-08] MEDS: metoprolol tartrate 25mg tablet PO SCH (07:38)
[2017-08-08] MEDS: potassium Cl 20 mEq SR tablet PO SCH (07:38)
[2017-08-08] MEDS: K and/or MAG REPLACEMENT MC SCH (07:39)
[2017-08-08] MEDS: magnesium Cl slow-release 64mg tablet PO SCH (07:39)
[2017-08-08] MEDS ORDERED: aspirin 81mg tablet.DR PO SCH (08:00)
[2017-08-08] MEDS ORDERED: HYDR-569 PO (09:16)
[2017-08-08] MEDS ORDERED: METO25TA6 PO (09:16)
[2017-08-08] MEDS ORDERED: COL100C PO (09:16)
== END 2017-08-08 10:40 | disposition home or self-care (01) | DRG 236 ==
LOC: PAS IN 05:20 → EDSTATUS 07:30 → CICU 2S 10:38 → PCU 3S 08-06 10:45
PROVIDERS: ADMIT Thoracic Surgery (Cardiothoracic Vascular Surgery); ATTEND Thoracic Surgery (Cardiothoracic Vascular Surgery)
PROC: 0210099 Bypass Coronary Artery, One Artery from Left Internal Mammary with Autologous Venous Tissue, Open Approach (ICD-10-PCS; 2017-08-04)
PROC: 5A1221Z Performance of Cardiac Output, Continuous (ICD-10-PCS; 2017-08-04)
PROC: 06BP0ZZ Excision of Right Saphenous Vein, Open Approach (ICD-10-PCS; 2017-08-04)
PROC: 02120AW Bypass Coronary Artery, Three Arteries from Aorta with Autologous Arterial Tissue, Open Approach (ICD-10-PCS; principal; 2017-08-04 07:05)
DX: I25.110 Atherosclerotic heart disease of native coronary artery with unstable angina pectoris (principal); E78.00 Pure hypercholesterolemia, unspecified; J45.909 Unspecified asthma, uncomplicated; Z82.49 Family history of ischemic heart disease and other diseases of the circulatory system; Z87.01 Personal history of pneumonia (recurrent); Z83.3 Family history of diabetes mellitus; Z87.891 Personal history of nicotine dependence; Z88.8 Allergy status to other drugs, medicaments and biological substances
CPT/HCPCS: 0232T; 93312; 93325; Z7506; Z7508; 36415; 36600; 71045; 71046; 80048; 80053; 81001; 82330; 82435; 82803; 82947; 82948; 83036; 83735; 84100; 84132; 84295; 85018; 85025; 85347; 85384; 85610; 85730; 86885; 86900; 86901; 86920; 87070; 87088; 93005; 93880; 93931; 93971; 94002; 94010; 94668; 94760; 97116; 97161; 97530; A6213; A6255; A6258; A6402; A6449; A7000; A7048; C1751; J0690; J1265; J1644; J1815; J2001; J2060; J2150; J2270; J2370; J2440; J2704; J2720; J2930; J3370; J3475; J3480; J3490; J7030; J7120; P9045; P9047

== ENCOUNTER 2017-08-10 18:07 | Emergency (ER) | payer BC ==
[~2017-08-10] VITALS: Ht 154.9 cm; Wt 61.1 kg
[~2017-08-10 18:07] MED LIST changes: +COL100C PO; +HYDR-569 PO; -NITR0.4T48 SL; -dextrose 50%-water 50ml dispensing syringe IV PRN; -ringers solution, lacted 1,000 ML IV SCH
[2017-08-10 18:40] LABS: BASOPHILS % (AUTO) 0.3 % (0-1); EOSINOPHILS # (AUTO) 0.4 X10'3 (0-0.9); EOSINOPHILS % (AUTO) 3.3 % (0-6); HEMATOCRIT 35.2 % (35.0-45.0); LYMPHOCYTES # (AUTO) 1.7 X10'3 (1.1-4.8); LYMPHOCYTES % (AUTO) 13.9 % (21-51); MEAN CORPUSCULAR HEMOGLOBIN 29.6 PG (27.0-31.0); MEAN PLATELET VOLUME 7.2 FL (7.4-10.4); MONOCYTES # (AUTO) 0.9 X10'3 (0-0.9); MONOCYTES % (AUTO) 7.8 % (2-12); NEUTROPHILS % (AUTO) 74.7 % (42-75); PLATELET COUNT 413 X10'3 (140-440); RED BLOOD COUNT 4.04 X10'6 (4.20-5.60); RED CELL DISTRIBUTION WIDTH 13.5 % (11.5-14.5); WHITE BLOOD COUNT 12.1 X10'3 (4.5-11.0)
[2017-08-10 18:58] LABS: ALANINE AMINOTRANSFERASE 39 U/L (12-78); ALBUMIN 3.7 G/DL (3.4-5.0); ALKALINE PHOSPHATASE 75 IU/L (46-116); ANION GAP 10 (8-16); ASPARTATE AMINO TRANSFERASE 21 U/L (10-37); BILIRUBIN,TOTAL 0.7 MG/DL (0.1-1.0); BLOOD UREA NITROGEN 14 MG/DL (7-18); BUN/CREATININE RATIO 16.1 (6.6-38.0); CALCIUM 9.7 MG/DL (8.5-10.1); CHLORIDE 101 MMOL/L (99-107); CREATININE 0.87 MG/DL (0.40-0.90); GLUCOSE 126 MG/DL (70-104); SODIUM 139 MMOL/L (135-145); TOTAL CARBON DIOXIDE 27.7 MMOL/L (24-32); TOTAL PROTEIN 7.4 G/DL (6.4-8.2); eGFR 66 ML/MIN
[2017-08-10] MEDS ORDERED: morphine 4 MG/ML inj SYRINge IV ONE (19:00)
[2017-08-10] MEDS ORDERED: iohexol 350MG/ML 100ml bottle IV ONE (19:39)
[2017-08-10] MEDS ORDERED: HYDROcodone/acetaminophen 10/325mg tab PO ONE (21:25)
[2017-08-10] MEDS ORDERED: HYDR-565 PO (21:27)
[2017-08-10 21:38] VITALS: BP 115/70
== END 2017-08-10 21:46 | disposition home or self-care (01) ==
LOC: ER 18:08
DX: R07.89 Other chest pain (principal); J90 Pleural effusion, not elsewhere classified; I25.2 Old myocardial infarction; Z95.1 Presence of aortocoronary bypass graft; Z79.82 Long term (current) use of aspirin; Z79.899 Other long term (current) drug therapy; Z88.5 Allergy status to narcotic agent
CPT/HCPCS: 36415; 71045; 71275; 80053; 83880; 85025; 93005; 96374; 99285; J2270; J7030; Q9967